=== PATIENT | male | born 1950 | race Caucasian/White ===

== ENCOUNTER 2016-08-12 14:57 | Outpatient (CLI) | payer OTHER ==
[~2016-08-12 14:57] MED LIST: ETODOLAC ER400 MG PO; PERCOCET1 TA1 PO; TRAMADOL HCL50 MG PO
--- NOTE | 2016-08-12 16:31 | DIAGNOSTIC IMAGING REPORT ---
PROCEDURE: CT LOW-DOSE LUNG CA SCREENING CLINICAL INDICATION: HX NICOTINE DEPENDENCE TECHNIQUE: Low-dose helical CT images of the lungs without contrast were obtained and reconstructed at 2.5 mm intervals. MIP reformations in coronal and sagittal planes were created. Radiation dose 1.38 mGy. COMPARISON: Oldest available comparison: Outside chest x-ray 07/28/2016. FINDINGS: NODULES: No pulmonary nodules. OTHER LUNG FINDINGS: Mild hyperinflation. AIRWAY: Branches normally without narrowing or endobronchial nodule. PLEURA: No effusions, thickening, or pneumothorax. AORTA AND GREAT VESSELS: Normal caliber, mild atherosclerotic calcification. PULMONARY ARTERIES: Normal. . HEART AND PERICARDIUM: Normal size without effusion, thickening. LYMPH NODES: No enlarged nodes visible. THORACIC SPINE: No suspicious lesion. Mild degenerative changes. CHEST WALL: Normal. VISUALIZED UPPER ABDOMEN: Normal. Moderate to large hiatal hernia. IMPRESSION: 1. No evidence of pulmonary nodules 2. Category 1. Negative Recommend annual screening with LDCT in 12 months. 3. Mild hyperinflation 4. Moderate to large hiatal hernia. All CT scans at this facility use dose modulation, iterative reconstruction, and/or weight-based dosing when appropriate to reduce radiation dose to as low as reasonably achievable.
--- NOTE | 2016-08-12 16:35 | DIAGNOSTIC IMAGING REPORT ---
PROCEDURE: CT SINUS/FACIAL BONES W/O CONT CLINICAL INDICATION: ACUTE RECURRENT SINUSITIS TECHNIQUE: Noncontrast axial images with coronal reformations. COMPARISON: None. FINDINGS: Minor frontal and moderate right maxillary sinus mucosal thickening. Remaining paranasal sinuses are clear. Patent ostiomeatal units. Left jhony bullosa. Mild left nasal septal deviation. Visualized mastoids are normal. Normal TMJs. IMPRESSION: 1. Minor frontal and moderate right maxillary sinus mucosal thickening 2. Left jhony bullosa 3. Mild left nasal septal deviation All CT scans at this facility use dose modulation, iterative reconstruction, and/or weight-based dosing when appropriate to reduce radiation dose to as low as reasonably achievable.
== END 2016-08-12 23:00 | disposition home or self-care (01) ==
LOC: CT SRH 14:57
DX: Z87.891 Personal history of nicotine dependence (principal); J32.0 Chronic maxillary sinusitis; J34.2 Deviated nasal septum; K44.9 Diaphragmatic hernia without obstruction or gangrene